=== PATIENT | male | born 1965 | race Caucasian/White ===

== ENCOUNTER 2023-08-24 00:40 | Emergency (ER) | payer OTHER ==
[~2023-08-24] VITALS: Ht 177.8 cm; Wt 160.0 kg
[2023-08-24 00:40] VITALS: BP 0/0; PULSE 0; RESP 20; TEMP 98.2; O2SAT 0
[2023-08-24] MEDS ORDERED: EPINEPHrine HCL 1 MG/10 ML SYRG IV ONE (00:41)
[2023-08-24] MEDS ORDERED: SODIUM BICARBONATE 8.4% INJ 50ML SYRINGE IV ONE (00:41)
== END 2023-08-24 01:04 ==
LOC: ER 00:40 → EDBD 00:40 → ER 01:04
DX: I46.9 Cardiac arrest, cause unspecified (principal); I11.0 Hypertensive heart disease with heart failure; I50.9 Heart failure, unspecified
CPT/HCPCS: 31500; 92950; 99285; J0171